=== PATIENT | male | born 1940 | race Asian ===

== ENCOUNTER 2018-09-18 15:24 | Emergency (ER) | payer OTHER ==
[~2018-09-18] VITALS: Ht 165.1 cm; Wt 72.6 kg
[2018-09-18 15:37] VITALS: Ht 165.1 cm; Wt 72.6 kg
[2018-09-18 18:07] VITALS: BP 138/88
== END 2018-09-18 18:00 | disposition home or self-care (01) ==
LOC: ED 15:24
DX: S46.912A Strain of unspecified muscle, fascia and tendon at shoulder and upper arm level, left arm, initial encounter (principal); S50.02XA Contusion of left elbow, initial encounter; I10 Essential (primary) hypertension; W01.0XXA Fall on same level from slipping, tripping and stumbling without subsequent striking against object, initial encounter; Y93.89 Activity, other specified; Y92.238 Other place in hospital as the place of occurrence of the external cause; Y99.8 Other external cause status

== ENCOUNTER 2018-12-04 08:06 | Emergency (ER) | payer OTHER ==
[~2018-12-04] VITALS: Ht 162.6 cm; Wt 66.2 kg
[2018-12-04 08:22] VITALS: Ht 162.6 cm; Wt 66.2 kg
[2018-12-04 09:41] VITALS: BP 172/101
== END 2018-12-04 09:41 | disposition home or self-care (01) ==
LOC: ED 08:06
DX: M25.512 Pain in left shoulder (principal); I10 Essential (primary) hypertension